=== PATIENT | female | born 1995 | race African-American/Black ===

== ENCOUNTER 2017-03-04 16:50 | Emergency (ER) | payer SELFPAY ==
[2017-03-04] MEDS ORDERED: ONDANSETRON 4 MG TAB.RAPDIS PO ONE (17:17)
--- NOTE | 2017-03-04 17:19 | ER Document Report ---
ED Medical Screen (RME) - General Chief Complaint: Vomiting Stated Complaint: VOMITING,HEADACHE Time Seen by Provider: 03/04/17 17:11 Mode of Arrival: Ambulatory Information source: Patient Notes: This is a 21-year-old female that presents to the emergency room with nausea, vomiting since yesterday. The patient states that she vomited multiple times yesterday and is only vomited twice today. She was able to tolerate food and had recently gone to [employer] shortly prior to arrival. She does state she is nauseated right now. She denies abdominal pain at this time. She denies fever. TRAVEL OUTSIDE OF THE [place] IN LAST 30 DAYS: No - HPI Onset: Yesterday Onset/Duration: Gradual Quality of pain: Cramping, Dull Severity: Mild Pain Level: 1 Associated Symptoms: Diarrhea, Nausea, Vomiting. denies: Abdominal pain, Dysuria Exacerbated by: Denies Relieved by: Denies Similar symptoms previously: No Recently seen / treated by doctor: No - Related Data Smoking: Non-smoker Frequency of alcohol use: None Drug Abuse: None Allergies/Adverse Reactions: No Known Allergies Allergy (Unverified 03/04/17 16:52) Past Medical History - General Information source: Patient - Social History Cigarette use (# per day): No Chew tobacco use (# tins/day): No Frequency of alcohol use: Rare Drug Abuse: None Lives with: Family Family history: Reviewed & Not Pertinent - Medical History Medical History: Negative Renal/ Medical History: Denies: Hx Peritoneal Dialysis Surgical Hx: Negative - Immunizations Immunizations up to date: Yes Hx Diphtheria, Pertussis, Tetanus Vaccination: Yes History of Influenza Vaccine for 03/2017 - 08/2017 Season: No Review of Systems - Review of Systems Constitutional: denies: Chills, Fever EENT: No symptoms reported Cardiovascular: No symptoms reported Respiratory: No symptoms reported Gastrointestinal: See HPI Genitourinary: No symptoms reported Female Genitourinary: No symptoms reported Musculoskeletal: No symptoms reported Skin: No symptoms reported Hematologic/Lymphatic: No symptoms reported Neurological/Psychological: See HPI Physical Exam - Vital signs Vitals: Temp Pulse Resp BP Pulse Ox 98.5 F 78 16 128/76 H 100 03/04/17 16:55 03/04/17 16:55 03/04/17 16:55 03/04/17 16:55 03/04/17 16:55 Notes: Physical exam: GENERAL: 21-year-old female, alert and oriented 3, no acute distress HEAD: Atraumatic, normocephalic. EYES: Pupils equal round and reactive to light, extraocular movements intact, sclera anicteric, conjunctiva are normal. ENT: TMs normal, nares patent, oropharynx clear without exudates. Moist mucous membranes. NECK: Normal range of motion, supple without obvious mass or JVD. LUNGS: Breath sounds clear to auscultation bilaterally and equal. No wheezes rales or rhonchi. HEART: Regular rate and rhythm without murmurs, rubs or gallops. ABDOMEN: Soft, normoactive bowel sounds. No tenderness to palpation. No guarding, no rebound. No masses appreciated. EXTREMITIES: Normal range of motion, no pitting or edema. No clubbing or cyanosis. NEUROLOGICAL: Cranial nerves II through XII grossly intact. Normal speech, moving all extremities. PSYCH: Normal mood, normal affect. SKIN: Warm, Dry, normal turgor, no rashes or lesions noted. Course - Vital Signs Vital signs: Temp Pulse Resp BP Pulse Ox 97.8 F 61 16 123/74 100 03/04/17 17:31 03/04/17 17:31 03/04/17 17:31 03/04/17 17:31 03/04/17 17:31 - Laboratory Result Diagrams: 03/04/17 18:56 03/04/17 18:56 Laboratory results interpreted by me: 03/04/17 03/04/17 03/04/17 18:56 18:56 18:56 RBC 5.71 H MCV 72 L MCH 23.4 L RDW 15.2 H Calcium 10.4 H Total Protein 8.5 H Urine Urobilinogen 2.0 H Ur Leukocyte Esterase MODERATE H Urine Ascorbic Acid 40 H Doctor's Discharge - Discharge Clinical Impression: Vomiting Qualifiers: Nausea presence: with nausea Headache Qualifiers: Headache type: tension-type Condition: Stable Disposition: HOME, SELF-CARE Instructions: Antinausea Medication ([facility]) Additional Instructions: Thank you for choosing [facility] for your care. The examination and treatment you have received in the Emergency Department today has been rendered on an emergency basis only and is not intended to be a substitute for complete medical care. You should contact your follow-up physician as it is important that he or she examine you for any new or remaining problems. If given a copy of any lab tests or radiology reports, please bring them with you when you see your physician. If your problem worsens or new symptoms appear and you are unable to arrange prompt follow-up care, return to the Emergency Department. Specific signs to look out for: Worsening nausea and vomiting, worsening headache, fever, neck pain, light bothering the eyes. Any other instructions: Rest, drink plenty of fluids, take the Zofran for nausea, advance diet as needed.
[2017-03-04 17:33] VITALS: BP 123/74
[2017-03-04 19:09] LABS: ABSOLUTE BASOPHILS # (AUTO) 0.1 10^3/uL (0.0-0.2); ABSOLUTE EOSINOPHILS # (AUTO) 0.1 10^3/uL (0.0-0.6); ABSOLUTE LYMPHOCYTES (AUTO) 2.9 10^3/uL (0.5-4.7); ABSOLUTE MONOCYTES (AUTO) 0.7 10^3/uL (0.1-1.4); BASOPHILS % (AUTO) 0.6 % (0-2); EOSINOPHILS % (AUTO) 0.8 % (0-6); HEMOGLOBIN 13.3 g/dL (12.0-15.5); HGB HCT DIFFERENCE -1.1; LYMPHOCYTES % (AUTO) 29.6 % (13-45); MEAN CORPUSCULAR HEMOGLOBIN 23.4 pg (27.0-33.4); MEAN CORPUSCULAR HGB CONC 32.5 g/dL (32.0-36.0); MEAN CORPUSCULAR VOLUME 72 fl (80-97); MONOCYTES % (AUTO) 7.4 % (3-13); RED BLOOD COUNT 5.71 10^6/uL (3.72-5.28); RED CELL DISTRIBUTION WIDTH 15.2 % (11.5-14.0); SEGMENTED NEUTROPHILS % (AUTO) 61.6 % (42-78); WHITE BLOOD COUNT 9.7 10^3/uL (4.0-10.5)
[2017-03-04 19:23] LABS: ALANINE AMINOTRANSFERASE 28 U/L (9-52); ALBUMIN 4.6 g/dL (3.5-5.0); ALKALINE PHOSPHATASE 82 U/L (38-126); ANION GAP 14 (5-19); ASPARTATE AMINO TRANSFERASE 21 U/L (14-36); BILIRUBIN,DIRECT 0.3 mg/dL (0.0-0.4); BILIRUBIN,TOTAL 0.5 mg/dL (0.2-1.3); BLOOD UREA NITROGEN 8 mg/dL (7-20); CALCIUM 10.4 mg/dL (8.4-10.2); CARBON DIOXIDE 26 mmol/L (22-30); CHLORIDE 102 mmol/L (98-107); CREATININE RESULT 0.86 mg/dL (0.52-1.25); GLUCOSE 77 mg/dL (75-110); POTASSIUM 4.1 mmol/L (3.6-5.0); SODIUM 141.9 mmol/L (137-145); TOTAL PROTEIN 8.5 g/dL (6.3-8.2)
[2017-03-04 19:29] LABS: APPEARANCE,URINE SLIGHTLY-CLOUDY; BILIRUBIN,URINE NEGATIVE (NEGATIVE); GLUCOSE, URINE NEGATIVE (NEGATIVE); KETONES,URINE NEGATIVE (NEGATIVE); LEUKOCYTE ESTERASE,URINE MODERATE (NEGATIVE); NITRITE,URINE NEGATIVE (NEGATIVE); PROTEIN,URINE NEGATIVE (NEGATIVE); URINE SPECIFIC GRAVITY 1.018
[2017-03-04] MEDS ORDERED: ONDANSETRON ODT 4 MG TAB (6 TAB/DSPK) PO PRN (19:55)
== END 2017-03-04 20:11 | disposition home or self-care (01) ==
LOC: ER 16:50
DX: R11.2 Nausea with vomiting, unspecified (principal); G44.209 Tension-type headache, unspecified, not intractable; R19.7 Diarrhea, unspecified
CPT/HCPCS: 99283; 36415; 84702; 85025; 80053; 81001; S0119

== ENCOUNTER 2017-04-15 17:12 | Emergency (ER) | payer SELFPAY ==
--- NOTE | 2017-04-15 20:02 | ER Document Report ---
ED GI/ - General Chief Complaint: Abdominal Cramping Stated Complaint: ABDOMINAL PAIN Time Seen by Provider: 04/15/17 19:42 Mode of Arrival: Ambulatory Information source: Patient Notes: 22-year-old female presents to ED for complaint of lower abdominal pain and pelvic pain. She denies any nausea or vomiting. She is unsure last menstrual period but she is on Nexplanon. She states her boyfriend just came [place] from [place] and he states he tested positive for chlamydia. She has had some pelvic pain does not remember any discharge. His boyfriend came back in January. TRAVEL OUTSIDE OF THE [place] IN LAST 30 DAYS: No - HPI Patient complains to provider of: Pelvic pain Onset: Other - Boyfriend positive for chlamydia she has had pelvic pain chronic Timing/Duration: Persistent Quality of pain: Cramping, Sharp Severity at maximum: Moderate Severity in ED: Moderate Pain Level: 3 Location: Pelvis Vaginal bleeding (Compared to normal period): None Associated symptoms: Vaginal discharge, Other - Pelvic pain all the time boyfriend came home in January and is positive with chlamydia Exacerbated by: Denies Relieved by: Denies Similar symptoms previously: Yes Recently seen / treated by doctor: No - Related Data Allergies/Adverse Reactions: No Known Allergies Allergy (Verified 04/15/17 17:21) Past Medical History - General Information source: Patient - Social History Smoking Status: Never Smoker Cigarette use (# per day): No Chew tobacco use (# tins/day): No Smoking Education Provided: No Frequency of alcohol use: None Drug Abuse: None Occupation: [employer] Lives with: Parents Family History: CVA, Hypertension, Other - Dementia. denies: Arthritis, CAD, COPD, DM, Hyperlipidemia, Malignancy, Thyroid Disfunction Patient has suicidal ideation: No Patient has homicidal ideation: No - Past Medical History Cardiac Medical History: Reports: None Pulmonary Medical History: Reports: None EENT Medical History: Reports: None Neurological Medical History: Reports: None Endocrine Medical History: Reports: None Renal/ Medical History: Reports: None Malignancy Medical History: Reports: None GI Medical History: Reports: None Musculoskeltal Medical History: Reports None Skin Medical History: Reports None Psychiatric Medical History: Reports: None Traumatic Medical History: Reports: None Infectious Medical History: Reports: None Surgical Hx: Negative Past Surgical History: Reports: None - Immunizations Immunizations up to date: Yes Hx Diphtheria, Pertussis, Tetanus Vaccination: Yes Review of Systems - Review of Systems Constitutional: No symptoms reported EENT: No symptoms reported Cardiovascular: No symptoms reported Respiratory: No symptoms reported Gastrointestinal: No symptoms reported Genitourinary: No symptoms reported Female Genitourinary: Vaginal discharge, Other - Pelvic pain Musculoskeletal: No symptoms reported Skin: No symptoms reported Hematologic/Lymphatic: No symptoms reported Neurological/Psychological: No symptoms reported -: Yes All other systems reviewed and negative Physical Exam - Vital signs Vitals: Temp Pulse Resp BP Pulse Ox 98.5 F 83 16 141/85 H 98 04/15/17 17:20 04/15/17 17:20 04/15/17 17:20 04/15/17 17:20 04/15/17 17:20 Interpretation: Normal - General General appearance: Appears well, Alert - HEENT Head: Normocephalic, Atraumatic Eyes: Normal Pupils: PERRL - Respiratory Respiratory status: No respiratory distress Chest status: Nontender Breath sounds: Normal Chest palpation: Normal - Cardiovascular Rhythm: Regular Heart sounds: Normal auscultation Murmur: No - Abdominal Inspection: Normal Distension: No distension Bowel sounds: Normal Tenderness: Nontender Organomegaly: No organomegaly - Back Back: Normal, Nontender - Extremities General upper extremity: Normal inspection, Nontender, Normal color, Normal ROM , Normal temperature General lower extremity: Normal inspection, Nontender, Normal color, Normal ROM , Normal temperature, Normal weight bearing. No: Jacquelin's sign - Neurological Neuro grossly intact: Yes Cognition: Normal Orientation: AAOx4 Cuco Coma Scale Eye Opening: Spontaneous Ira Coma Scale Verbal: Oriented Ira Coma Scale Motor: Obeys Commands Ira Coma Scale Total: 15 Speech: Normal Motor strength normal: LUE, RUE, LLE, RLE Sensory: Normal - Psychological Associated symptoms: Normal affect, Normal mood - Skin Skin Temperature: Warm Skin Moisture: Dry Skin Color: Normal Course - Re-evaluation Re-evalutation: 04/16/17 02:10 Patient called back in to the hospital later after going home and was given her lab results. He was positive chlamydia but she had already been treated with Rocephin and azithromycin before being discharged. - Vital Signs Vital signs: Temp Pulse Resp BP Pulse Ox 97.9 F 86 16 126/80 H 99 04/15/17 21:47 04/15/17 21:47 04/15/17 21:47 04/15/17 21:47 04/15/17 21:47 - Laboratory Laboratory results interpreted by me: 04/15/17 04/15/17 20:20 20:20 Ur Leukocyte Esterase TRACE H Urine Ascorbic Acid 40 H Chlamydia DNA (PCR) DETECTED H Discharge - Discharge Clinical Impression: Folliculitis, STD exposure Condition: Stable Disposition: HOME, SELF-CARE Instructions: Family Physicians / Practices Additional Instructions: Folliculitis You have a skin infection called folliculitis. This occurs when bacteria infect the hair follicles of the skin. Typically, redness and small pustules are found where hair shafts enter the skin. Allergy, surface irritation, shaving, and exposure to hot tubs predispose to folliculitis. The usual treatment is antibiotic ointment, sometimes combined with cortisone-type medication. Warm compresses are often used. If the infection has moved deeper into the skin, oral antibiotics may be necessary. To avoid future episodes of folliculitis, you must identify (if possible) the factors which allowed this infection to start. If you develop increasing pain, swelling, fever, or red streaks, call the doctor or return for re-evaluation. CEPHALOSPORINS: An antibiotic of the cephalosporin class has been prescribed. This type of antibiotic covers a wide variety of infections, including those of the skin, lungs, middle ear, and urinary tract. This antibiotic is somewhat similar to the penicillin family. In rare cases , a person who is allergic to penicillin will also be allergic to this medication. If you have had a severe allergic reaction to penicillin, and have not taken this antibiotic since that time, notify your doctor. Antibiotics which cover many germs ("broad spectrum" antibiotics) are more likely to cause diarrhea or "yeast" infections. Women prone to vaginal yeast problems may suffer an attack after taking this antibiotic. In infants, oral thrush (white spots "stuck" on the cheek) or yeast diaper rash may result. See your doctor if these problems occur. Call the doctor at once if you develop hives, itching, shortness of breath , or lightheadedness. Cephalexin The antibiotic you've been prescribed is a member of the cephalosporin class. This type of antibiotic covers a wide variety of infections, including those of the skin, lungs, and urinary tract. It's useful for staph infections. This antibiotic is slightly similar to the penicillin family. In rare cases , a person who is allergic to penicillin will also be allergic to this medication. If you have had a severe allergic reaction to penicillin, and have not taken this antibiotic since that time, notify your doctor. Antibiotics which cover many germs ("broad spectrum" antibiotics) are more likely to cause diarrhea or "yeast" infections. Women prone to vaginal yeast problems may suffer an attack after taking this antibiotic. In infants, oral thrush (white spots "stuck" on the cheek) or yeast diaper rash may result. See your doctor if these problems occur. Call at once if you develop itching, hives , shortness of breath, or lightheadedness. AZITHROMYCIN: Azithromycin (Zithromax) is a broad spectrum antibiotic in the same class as erythromycin. It can treat a variety of bacterial infections, but is most frequently used for respiratory infections. Azithromycin is extremely long-lasting. It accumulates in body tissues and continues to kill bacteria for many days. In order to improve absorption, Azithromycin should be taken at least one hour before or two hours after a meal. It does not have the same strong tendency to upset the stomach as erythromycin and is usually very well tolerated. Patients who have had a rash or other true allergic reactions to erythromycin should not take this medication. Call if you develop gastrointestinal distress, severe diarrhea, rash, hives, itching, or shortness of breath. FOLLOW-UP CARE: If you have been referred to a physician for follow-up care, call the physician s office for an appointment as you were instructed or within the next two days. If you experience worsening or a significant change in your symptoms, notify the physician immediately or return to the Emergency Department at any time for re-evaluation. Prescriptions: Cephalexin Monohydrate [Keflex 500 mg Capsule] 500 mg PO Q6H 5 Days capsule Forms: Elevated Blood Pressure, Return to Work
[2017-04-15 20:49] LABS: APPEARANCE,URINE CLEAR; BILIRUBIN,URINE NEGATIVE (NEGATIVE); GLUCOSE, URINE NEGATIVE (NEGATIVE); KETONES,URINE NEGATIVE (NEGATIVE); LEUKOCYTE ESTERASE,URINE TRACE (NEGATIVE); NITRITE,URINE NEGATIVE (NEGATIVE); PROTEIN,URINE NEGATIVE (NEGATIVE); UROBILINOGEN,URINE NEGATIVE mg/dL (<2.0)
[2017-04-15] MEDS ORDERED: AZITHROMYCIN 250 MG TABLET PO ONE (20:59)
[2017-04-15] MEDS ORDERED: CEFTRIAXONE INJ 250 MG VIAL IM ONE (20:59)
[2017-04-15] MEDS ORDERED: LIDOCAINE 1% INJ-PF (10 MG/ML) 30 ML SDV INJ ONE (20:59)
[2017-04-15 21:50] VITALS: BP 126/80
[2017-04-15 22:11] LABS: CHLAM PCR DETECTED (NOT DETECT)
== END 2017-04-15 21:51 | disposition home or self-care (01) ==
LOC: ER 17:12
DX: L73.9 Follicular disorder, unspecified (principal); Z20.2 Contact with and (suspected) exposure to infections with a predominantly sexual mode of transmission; R10.2 Pelvic and perineal pain; N89.8 Other specified noninflammatory disorders of vagina; Z97.5 Presence of (intrauterine) contraceptive device
CPT/HCPCS: 99284; 96372; 51701; 87210; 81025; 81001; 87491; 87591; J3490; J0696

== ENCOUNTER 2017-09-06 09:16 | Emergency (ER) | payer SELFPAY ==
[2017-09-06] MEDS ORDERED: PSEUDOEPHEDRINE HCL 30 MG TABLET PO ONE (10:13)
[2017-09-06] MEDS ORDERED: ONDANSETRON 4 MG TAB.RAPDIS PO ONE (10:13)
[2017-09-06] MEDS ORDERED: LORATADINE 10 MG TABLET PO ONE (10:13)
[2017-09-06] MEDS ORDERED: GUAIFENESIN 600 MG TABLET.SA PO ONE (10:13)
[2017-09-06] MEDS ORDERED: IBUPROFEN 800 MG TABLET PO ONE (10:13)
--- NOTE | 2017-09-06 10:19 | ER Document Report ---
ED ENT - General Chief Complaint: Cold Symptoms Stated Complaint: COLD SYMPTOMS Time Seen by Provider: 09/06/17 09:53 Mode of Arrival: Ambulatory Information source: Patient Notes: 22-year-old female presented ED for sore throat cough congestion headache for 2 days. She states she has a Nexplanon in her arm and that she sometimes has numbness to that arm. She states she did not take any medications at home. She states she felt like she had a fever but she did not have one in the emergency room. Patient mother was with the patient. Patient is alert oriented is speaking in full sentences walking with a steady gait. TRAVEL OUTSIDE OF THE [place] IN LAST 30 DAYS: No - HPI Patient complains to provider of: Nose problem, Throat problem Onset: Other - 2 days Onset/Duration: Gradual Quality of pain: Achy Severity: Mild Pain Level: 1 Context: Recent Illness Location of pain: Nose, Sinus, Throat Associated symptoms: Fever, Runny nose, Sinus pain, Sinus drainage, Sore throat Similar symptoms previously: Yes Recently seen / treated by doctor: No - Related Data Allergies/Adverse Reactions: No Known Allergies Allergy (Verified 09/06/17 09:21) Past Medical History - General Information source: Patient - Social History Smoking Status: Never Smoker Cigarette use (# per day): No Chew tobacco use (# tins/day): No Smoking Education Provided: No Frequency of alcohol use: None Drug Abuse: None Lives with: Family Family History: CVA, Hypertension, Other - Dementia. denies: Arthritis, CAD, COPD, DM, Hyperlipidemia, Malignancy, Thyroid Disfunction Patient has suicidal ideation: No Patient has homicidal ideation: No - Past Medical History Cardiac Medical History: Reports: None Pulmonary Medical History: Reports: None EENT Medical History: Reports: None Neurological Medical History: Reports: None Endocrine Medical History: Reports: None Renal/ Medical History: Reports: None Malignancy Medical History: Reports: None GI Medical History: Reports: None Musculoskeltal Medical History: Reports None Skin Medical History: Reports None Psychiatric Medical History: Reports: None Traumatic Medical History: Reports: None Infectious Medical History: Reports: None Surgical Hx: Negative Past Surgical History: Reports: None - Immunizations Immunizations up to date: Yes Hx Diphtheria, Pertussis, Tetanus Vaccination: Yes Review of Systems - Review of Systems Constitutional: Chills, Fever, Recent illness EENT: Nose discharge, Sinus pressure, Sinus discharge, Throat pain Cardiovascular: No symptoms reported Respiratory: No symptoms reported Gastrointestinal: No symptoms reported Genitourinary: No symptoms reported Female Genitourinary: No symptoms reported Musculoskeletal: No symptoms reported Skin: No symptoms reported Hematologic/Lymphatic: No symptoms reported Neurological/Psychological: No symptoms reported -: Yes All other systems reviewed and negative Physical Exam - Vital signs Vitals: Temp Pulse Resp BP Pulse Ox 98.0 F 103 H 16 143/76 H 98 09/06/17 09:24 09/06/17 09:24 09/06/17 09:24 09/06/17 09:24 09/06/17 09:24 Interpretation: Normal - General General appearance: Appears well, Alert - HEENT Head: Normocephalic, Atraumatic Eyes: Normal Pupils: PERRL Ears: Normal External canal: Normal Tympanic membrane: Normal Sinus: Normal Nasal: Purulent discharge, Swelling Mouth/Lips: Normal Mucous membranes: Normal Pharynx: Post nasal drainage. No: Erythema, Exudate, Tonsillar hypertrophy Neck: Normal - Respiratory Respiratory status: No respiratory distress Chest status: Nontender Breath sounds: Normal Chest palpation: Normal - Cardiovascular Rhythm: Regular Heart sounds: Normal auscultation Murmur: No - Abdominal Inspection: Normal Distension: No distension Bowel sounds: Normal Tenderness: Nontender Organomegaly: No organomegaly - Back Back: Normal, Nontender - Extremities General upper extremity: Normal inspection, Nontender, Normal color, Normal ROM , Normal temperature General lower extremity: Normal inspection, Nontender, Normal color, Normal ROM , Normal temperature, Normal weight bearing. No: Jacquelin's sign - Neurological Neuro grossly intact: Yes Cognition: Normal Orientation: AAOx4 [place] Coma Scale Eye Opening: Spontaneous [place] Coma Scale Verbal: Oriented [place] Coma Scale Motor: Obeys Commands [place] Coma Scale Total: 15 Speech: Normal Motor strength normal: LUE, RUE, LLE, RLE Sensory: Normal - Psychological Associated symptoms: Normal affect, Normal mood - Skin Skin Temperature: Warm Skin Moisture: Dry Skin Color: Normal Course - Re-evaluation Re-evalutation: 09/06/17 22:26 After performing a Medical Screening Examination, I estimate there is LOW risk for ACUTE CORONARY SYNDROME, RESPIRATORY FAILURE, SEPSIS OR MENINGITIS, thus I consider the discharge disposition reasonable. I have reevaluated this patient multiple times and no significant life threatening changes are noted. The patient and I have discussed the diagnosis and risks, and we agree with discharging home with close follow-up. We also discussed returning to the Emergency Department immediately if new or worsening symptoms occur. We have discussed the symptoms which are most concerning (e.g., changing or worsening pain, trouble swallowing or breathing, neck stiffness, fever) that necessitate immediate return. - Vital Signs Vital signs: Temp Pulse Resp BP Pulse Ox 97.9 F 99 18 140/78 H 99 09/06/17 10:57 09/06/17 10:57 09/06/17 10:57 09/06/17 10:57 09/06/17 10:57 Discharge - Discharge Clinical Impression: URI (upper respiratory infection) Qualifiers: URI type: unspecified URI Qualified Code(s): J06.9 - Acute upper respiratory infection, unspecified Headache Qualifiers: Headache type: unspecified Headache chronicity pattern: unspecified pattern Intractability: not intractable Qualified Code(s): R51 - Headache Condition: Stable Disposition: HOME, SELF-CARE Instructions: Family Physicians / Practices Additional Instructions: HEADACHE: The physician does not feel that the headache you are experiencing has a serious underlying cause. Most headaches are due to emotional stress, with resultant muscle tension (tension headache). Occasionally, headaches are secondary to changes in the blood vessels of the scalp (vascular headache and migraine headache). Sometimes, a headache is the first symptom of another developing illness, such as a viral infection. You have no evidence of stroke, bleeding, meningitis, or other serious cause of your headache. The treatment of headaches varies with the severity and cause of the pain. Not all headaches need pain shots. In fact, there is evidence that using narcotics for headaches may make them worse in the long run. The physician will determine the therapy that's in your best interest. If you develop a fever, if the headache is different from any you've previously experienced, or if the headache progressively worsens, then call your physician at once or go to the emergency room. UPPER RESPIRATORY ILLNESS: You have a viral infection of the respiratory passages -- a "cold." This common infection causes nasal congestion, drainage, and often sore throat and cough. It is highly contagious. The disease usually lasts about 10 to 14 days. There is no "cure" for the viral infection -- it must run its course. If there is a complication, such as bacterial infection in the nose, sinuses, middle ear, or bronchial tubes, antibiotics may be required. The antibiotics won't affect the virus. Drink plenty of fluids. A humidifier may help. An expectorant medication or decongestant may make you more comfortable. Use acetaminophen or ibuprofen for fever or aches. See the doctor if fever persists over two days, if there is any significant worsening of your symptoms, or if you simply fail to improve as expected. DECONGESTANT MEDICATION: A decongestant medicine has been suggested. Often this medicine is combined in the same tablet with an antihistamine or expectorant. This type of medicine is helpful in treating a bad cold or sinus condition, as well as in treatment of the nasal congestion of hay fever. It is not of much benefit for lung infections. Decongestant medicines are related to stimulants. They can cause an increase in blood pressure and heart rate. Persons with heart disease and high blood pressure should not take decongestants without discussing this with the physician. If you develop palpitations, chest pain, headache, or tremors, stop the medicine and consult your physician. COUGH-SUPPRESSANT & EXPECTORANT MEDICATION: You are to use a cough medication as needed for relief of symptoms. This medicine is a combination of an expectorant (to make the mucous thinner and more easily "coughed up") and a cough suppressant (to reduce the frequency of coughing). The cough-suppressant medicine is related to narcotics. You may experience mild nausea and sleepiness. Some patients who are very sensitive to narcotics may have stomach pain from this medicine. Taking the medicine with food reduces these side effects. Do not drive or work with machinery until you know how this medicine affects you. The expectorant should have no side effects. Iodine-containing expectorants (such as organidin) should not be taken by persons with active thyroid disease unless approved by your doctor. Call the doctor if you develop shortness of breath, hives, rash, itching, lightheadedness, or severe nausea and vomiting USE OF ACETAMINOPHEN (Tylenol): Acetaminophen may be taken for pain relief or fever control. It's much safer than aspirin, offering a wider range of "safe" dosages. It is safe during . Some brand names are Tylenol, Panadol, Datril, Anacin 3, Tempra, and Liquiprin. Acetaminophen can be repeated every four hours. The following are maximum recommended dosages: >89 pounds or adults 650 mg to 900 mg Acetaminophen can be repeated every four hours. Maximum dose not to exceed 4000 mg a day. USE OF DIPHENHYDRAMINE: Diphenhydramine (Benadryl) is an antihistamine and has been recommended to help treat your headache and to prevent side effects of other medications used to treat headaches. The medication can be repeated four times daily. Age Elixir (12.5 mg/tsp) 25 mg pill adult 1-2 tabs Antihistamines may cause drowsiness, especially with the first dose. Do not operate machinery or drive while under the effects of the medication. Do not combine the medication with alcohol, or with any other medication without talking to your doctor. ANTINAUSEA MEDICATION: You have been given a medication to suppress nausea and vomiting. This type of medication can be given as a shot, pill, or suppository. It will usually last for many hours. Pills and shots usually last six to eight hours, suppositories last about 12 hours. For the typical illness, only one or two doses of the medication may be necessary. Mild lightheadedness may occur. This type of medicine can cause drowsiness. Do not drive or operate dangerous machinery while under its influence. Do not mix with alcohol. See your doctor at once if you have muscle spasms or tightness, or uncontrollable motions (particularly of the neck, mouth, or jaw). Persistent vomiting or severe lightheadedness should also be evaluated by the physician. You have been treated with Claritin 10 mg, Sudafed 30 mg, Mucinex 600 mg, and ibuprofen 800 mg. For your cough cold congestion I have added Zofran to this mixture due to your headache it will help the ibuprofen with your headache. He can also take Flonase which is [id number] 1 spray each nostril followed the directions on the box. Another treatment that will help you is gargling with warm salt or salt water to clear the mucus from the back your throat. This will help your sore throat and your upper respiratory infection. The following is the recipe for that Salt and soda solution 1 quart of water 1 tablespoon of salt 1 teaspoon of baking soda Mixed 3 ingredients together and boil for 1 minute Placed in a covered quart jar Use 1/2 ounce of cold solution to gargle 3 times a day It also gets some nasal saline gel and put it into the outside of your nasal passageway to reduce the amount of pollen and other irritants to get into your notes. FOLLOW-UP CARE: If you have been referred to a physician for follow-up care, call the physician s office for an appointment as you were instructed or within the next two days. If you experience worsening or a significant change in your symptoms, notify the physician immediately or return to the Emergency Department at any time for re-evaluation. Forms: Elevated Blood Pressure, Return to Work
[2017-09-06 11:05] VITALS: BP 140/78
== END 2017-09-06 10:57 | disposition home or self-care (01) ==
LOC: ER 09:16
DX: J06.9 Acute upper respiratory infection, unspecified (principal); R51 Headache; R20.0 Anesthesia of skin
CPT/HCPCS: 99283; S0119

== ENCOUNTER 2017-10-08 13:10 | Emergency (ER) | payer OTHER ==
--- NOTE | 2017-10-08 14:34 | ER Document Report ---
ED ENT - General Chief Complaint: Sore Throat Stated Complaint: HEADACHE, THROAT PAIN, DIFFICULTY BREATHING Time Seen by Provider: 10/08/17 13:41 Mode of Arrival: Ambulatory Information source: Patient TRAVEL OUTSIDE OF THE [place] IN LAST 30 DAYS: No - HPI Patient complains to provider of: Throat problem Notes: Patient here with complaints of sore throat, nasal congestion and cough started yesterday. No fever. No difficulty breathing or swallowing. No nausea, vomiting, diarrhea. No blurred or loss vision. No neck stiffness. No rash. She also complains some intermittent numbness tingling to her left arm. She states that she thinks it is due to her implanted control and she has an appointment with her doctor regarding that coming up. She denies any numbness tingling or pain at this time. She denies any other complaints at this time. - Related Data Allergies/Adverse Reactions: No Known Allergies Allergy (Verified 10/08/17 13:13) Past Medical History - Social History Smoking Status: Unknown if Ever Smoked Family History: CVA, Hypertension, Other - Dementia. denies: Arthritis, CAD, COPD, DM, Hyperlipidemia, Malignancy, Thyroid Disfunction Patient has suicidal ideation: No Patient has homicidal ideation: No Renal/ Medical History: Denies: Hx Peritoneal Dialysis - Immunizations Immunizations up to date: Yes Hx Diphtheria, Pertussis, Tetanus Vaccination: Yes Review of Systems - Review of Systems -: Yes All other systems reviewed and negative Physical Exam - Vital signs Vitals: Temp Pulse Resp BP Pulse Ox 98.0 F 73 20 129/73 H 100 10/08/17 13:14 10/08/17 13:14 10/08/17 13:14 10/08/17 13:14 10/08/17 13:14 - Notes Notes: GENERAL: alert, cooperative, nontoxic, no distress. HEAD: normocephalic, atraumatic EYES: conjunctiva pink without discharge, no external redness or swelling. EARS: no external swelling, no external redness, no mastoid redness, swelling, tenderness. Ear canals are clear without swelling or drainage. TMs pearly gamboa , no redness, no bulging, normal landmarks, no perforation. NOSE: atraumatic, no external swelling. clear rhinorrhea noted. MOUTH/THROAT: mucous membranes moist and pink, posterior pharynx without erythema, swelling, exudate. No trismus or drooling. NECK: soft, supple, full range of motion, no meningismus. CHEST: no distress, lungs clear and equal throughout. No wheezing, rales, rhonchi. CARDIAC: regular rate and rhythm, no murmur, normal capillary refill, normal pulses. No peripheral edema noted. BACK: full range of motion, no CVA tenderness. EXTREMITIES: full range of motion of all extremities. No redness, no swelling. NEURO: alert and oriented A&O3, no focal deficits, full range of motion of all extremities. PYSCH: appropriate mood, affect. Patient is cooperative. SKIN: pink, warm, dry, no rash. Course - Re-evaluation Re-evalutation: 10/08/17 14:31 Patient is nontoxic appearing with stable vitals. She is here with complaints of nasal congestion, cough, sore throat that started yesterday. No fever. She is a benign exam. No sign of peritonsillar abscess, retropharyngeal abscess, epiglottitis. Rapid strep is negative. Lungs are clear. She is not hypoxic. Patient likely has a upper respiratory infection. At this point the patient will be discharged home with Claritin-D, Flonase. Follow-up if not better in 1 week, sooner for worsening symptoms, high fever, difficulty breathing or swelling, or for any further concerns. The patient's emergency department workup and current diagnosis were explained to the patient and or family. Follow-up instructions were provided. Medications if prescribed were discussed. Instructions for when to return to the emergency department including specific worrisome symptoms were discussed with the patient and/or family. The patient is noted to have elevated blood pressure during today's emergency department visit. The patient was informed of this finding. The patient was instructed that this may be related to pre-hypertension and requires further evaluation with a primary care provider. The patient has no hypertensive symptoms at this time. - Vital Signs Vital signs: Temp Pulse Resp BP Pulse Ox 98.0 F 73 20 129/73 H 100 10/08/17 13:14 10/08/17 13:14 10/08/17 13:14 10/08/17 13:14 10/08/17 13:14 Discharge - Discharge Clinical Impression: Sore throat URI (upper respiratory infection) Qualifiers: URI type: unspecified viral URI Qualified Code(s): J06.9 - Acute upper respiratory infection, unspecified Condition: Stable Disposition: HOME, SELF-CARE Instructions: Sore Throat ([facility]), Upper Respiratory Illness ([facility]) Additional Instructions: Patient is prescribed. Take Tylenol Motrin as needed for pain. Follow-up if not better in 1 week, sooner for worsening symptoms, high fever, difficulty breathing or swallowing, or for any further concerns. Your blood pressure was elevated during today's visit. Have this rechecked with your doctor. Prescriptions: Fluticasone Propionate [Flonase Nasal [place] 50 Mcg/[place] 16 gm] 1 spray NASL Q12 #1 inhaler Loratadine/Pseudoephedrine Sul [Claritin-D 12 Hour Tablet] 1 each PO BID PRN # [id number] PRN Reason: Forms: Elevated Blood Pressure, Smoking Cessation Education, Return to Work Referrals: [facility] [Provider Group] - Follow up as needed
[2017-10-08 14:40] VITALS: BP 128/70
== END 2017-10-08 14:38 | disposition home or self-care (01) ==
LOC: ER 13:10
DX: J06.9 Acute upper respiratory infection, unspecified (principal); J02.9 Acute pharyngitis, unspecified; R51 Headache; R09.81 Nasal congestion; R05 Cough; R20.0 Anesthesia of skin
CPT/HCPCS: 87070; 87880; 99283

== ENCOUNTER 2017-11-18 13:46 | Emergency (ER) | payer OTHER ==
--- NOTE | 2017-11-18 15:34 | ER Document Report ---
ED General - General Chief Complaint: Chest Pain Stated Complaint: CHEST PAIN Time Seen by Provider: 11/18/17 15:22 Notes: 22-year-old female presents emergency department complaining of sharp stabbing sternal chest pain starting this morning that worsens when she moves or takes a deep breath. States it was associated with shortness of breath earlier but that has since resolved. Has not tried anything to treat this. Does admit to having a recent upper respiratory infection that has since resolved. Denies any diaphoresis or radiation of the pain, denies any heart disease, cocaine use or family history of very early cardiac disease. TRAVEL OUTSIDE OF THE [place] IN LAST 30 DAYS: No - Related Data Allergies/Adverse Reactions: No Known Allergies Allergy (Verified 11/18/17 13:48) Past Medical History - General Information source: Patient - Social History Smoking Status: Never Smoker Chew tobacco use (# tins/day): No Frequency of alcohol use: None Drug Abuse: None Family History: CVA, Hypertension, Other - Dementia. denies: Arthritis, CAD, COPD, DM, Hyperlipidemia, Malignancy, Thyroid Disfunction Patient has suicidal ideation: No Patient has homicidal ideation: No Renal/ Medical History: Denies: Hx Peritoneal Dialysis - Immunizations Immunizations up to date: Yes Hx Diphtheria, Pertussis, Tetanus Vaccination: Yes Review of Systems - Review of Systems Constitutional: No symptoms reported Cardiovascular: See HPI Respiratory: See HPI -: Yes All other systems reviewed and negative Physical Exam - Vital signs Vitals: Temp Pulse Resp BP Pulse Ox 97.7 F 76 14 123/69 99 11/18/17 13:49 11/18/17 13:49 11/18/17 13:49 11/18/17 13:49 11/18/17 13:49 - Notes Notes: GENERAL: Alert, interacts well. No acute distress. HEAD: Normocephalic, atraumatic EYES: Pupils equal, round and reactive to light, extraocular movements intact. ENT: Oral mucosa moist, tongue midline. NECK: Full range of motion, supple, trachea midline. LUNGS: Clear to auscultation bilaterally, no wheezes, rales or rhonchi, no respiratory distress. HEART: Regular rate and rhythm, no murmurs, gallops, rubs. Sternal palpation is very tender, no rashes noted, pain worsens with any movement of her costochondral joint as well. ABDOMEN: Soft, nontender, nondistended, bowel sounds present in all 4 quadrants. EXTREMITIES: Moves all 4 extremities spontaneously, no edema. No cyanosis. NEUROLOGICAL: Alert and oriented x3, normal speech. PSYCH: Normal mood, normal affect. SKIN: Warm, Dry, normal turgor, no rashes or lesions noted. Course - Re-evaluation Re-evalutation: 11/18/17 15:29 EKG nonischemic, completely reproducible pain on exam, consistent with costochondritis, had a recent upper respiratory infection that likely triggered this inflammation. Patient will be discharged home with ibuprofen 800 mg every 8 hours and steroids. - Vital Signs Vital signs: Temp Pulse Resp BP Pulse Ox 97.7 F 76 14 123/69 99 11/18/17 13:49 11/18/17 13:49 11/18/17 13:49 11/18/17 13:49 11/18/17 13:49 Discharge - Discharge Clinical Impression: Costochondritis, acute Condition: Stable Disposition: HOME, SELF-CARE Additional Instructions: Costochondritis Your chest pain is coming from the rib cartilages in the chest wall. This is often caused by subtle straining of the ribs near the breastbone. The strain can occur from a mild injury, coughing or sneezing with a "cold," vigorous vomiting, or even from rib compression while sleeping. Often the pain doesn't begin until a couple of days after the strain. Persons with arthritis are especially prone to this type of pain, due to inflammation of the cartilage joints near the breast bone. But often, there is no clear reason why it happens. Rest from strenuous physical activity. This kind of chest pain is usually made worse by movement of the chest. Depending on the symptoms, we may prescribe medicine for pain and inflammation. Apply gentle warmth to the painful area for 15 minutes every hour or two. You should call contact the doctor immediately if things change. Further evaluation is needed if you develop a fever or cough, if the nature of the pain changes, or if you become short of breath. Prescriptions: Prednisone [Deltasone 20 mg Tablet] 2 tab PO DAILY 5 Days tablet Forms: Return to Work Referrals: ELIUD RODRIGUEZ MD [ACTIVE STAFF] - Follow up as needed
--- NOTE | 2017-11-18 15:39 | EKG REPORT ---
SEVERITY:- NORMAL ECG - SINUS RHYTHM : Confirmed by: Yana Quiroga MD 18-Nov-2017 15:37:55
[2017-11-18 15:43] VITALS: BP 124/68
== END 2017-11-18 15:34 | disposition home or self-care (01) ==
LOC: ER 13:46
DX: M94.0 Chondrocostal junction syndrome [Tietze] (principal); R07.9 Chest pain, unspecified
CPT/HCPCS: 93005; 93010; 99283

== ENCOUNTER 2018-02-04 09:20 | Emergency (ER) | payer SELFPAY ==
[2018-02-04] MEDS ORDERED: ACETAMINOPHEN 325 MG TABLET PO ONE (10:06)
[2018-02-04] MEDS ORDERED: ONDANSETRON 4 MG TAB.RAPDIS PO ONE (10:07)
--- NOTE | 2018-02-04 10:09 | ER Document Report ---
ED General - General Chief Complaint: Fever Stated Complaint: VOMITING/HEADACHE Time Seen by Provider: 02/04/18 10:01 Notes: Patient is a 22-year-old female that presents to the emergency department for chief complaint of congestion, nausea, vomiting and diarrhea. Patient states that she has been having these symptoms since Saturday, she states that the headache came on and she felt subjectively febrile, did not take her temperature , and then had nausea and vomiting, which continued through today, she had some diarrhea associated as well. She believes she has had some sick contacts as well, denies that this is the worst headache of her life, describes it as an throbbing sensation. She has not taken Tylenol or Motrin for her headache. She does not believe she is . She denies having any chest pain, shortness of breath, difficulty breathing, abdominal pain. Past Medical History: Denies chronic medical conditions Past Surgical History: Denies major surgical history Social History: Admits to occasional alcohol use, denies tobacco or illicit drug use. Family History: Reviewed and noncontributory for presenting illness Allergies: Reviewed, see documented allergy list. REVIEW OF SYSTEMS: Unless otherwise stated in this report the patient's positive and negative responses for review of systems for constitutional, eyes, ENT, cardiovascular, respiratory, gastrointestinal, neurological, genitourinary, musculoskeletal, and integumentary systems and related systems to the presenting problem are either as stated in the HPI or were not pertinent or were negative for the symptoms and/or complaints related to the presenting medical problem. PHYSICAL EXAMINATION: Vital signs reviewed, nursing noted reviewed. GENERAL: Well-appearing, well-nourished and in no acute distress. HEAD: Atraumatic, normocephalic. EYES: Eyes appear normal, extraocular movements intact, sclera anicteric, conjunctiva are normal. ENT: nares patent, posterior oropharynx demonstrates a few exudates, and enlarged tonsils. Moist mucous membranes. NECK: Normal range of motion, supple without lymphadenopathy LUNGS: Breath sounds clear to auscultation bilaterally and equal. No wheezes rales or rhonchi. HEART: Regular rate and rhythm without murmurs ABDOMEN: Soft, nontender, normoactive bowel sounds. No rebound, guarding, or rigidity. No masses appreciated. EXTREMITIES: Nontender, good range of motion, no pitting or edema. NEUROLOGICAL: No focal neurological deficits. Moves all extremities spontaneously Motor and sensory grossly intact on exam. PSYCH: Normal mood, normal affect. SKIN: Warm, Dry, normal turgor, no rashes or lesions noted on exposed skin TRAVEL OUTSIDE OF THE [place] IN LAST 30 DAYS: No - Related Data Allergies/Adverse Reactions: No Known Allergies Allergy (Verified 02/04/18 10:00) Past Medical History - Social History Smoking Status: Never Smoker Chew tobacco use (# tins/day): No Frequency of alcohol use: None Drug Abuse: None Family History: CVA, Hypertension, Other - Dementia. denies: Arthritis, CAD, COPD, DM, Hyperlipidemia, Malignancy, Thyroid Disfunction Patient has suicidal ideation: No Patient has homicidal ideation: No Renal/ Medical History: Denies: Hx Peritoneal Dialysis - Immunizations Immunizations up to date: Yes Hx Diphtheria, Pertussis, Tetanus Vaccination: Yes Review of Systems - Review of Systems Notes: Dictated Physical Exam - Vital signs Vitals: Temp Pulse Resp BP Pulse Ox 98.7 F 110 H 18 135/76 H 99 02/04/18 09:36 02/04/18 09:36 02/04/18 09:36 02/04/18 09:36 02/04/18 09:36 - Notes Notes: Dictated Course - Re-evaluation Re-evalutation: Patient seen and examined vital signs reviewed. Laboratory data and imaging were ordered as appropriate for the patient's presenting symptoms and complaint, with consideration of any critical or life threatening conditions that may be associated with their obtained history and exam as noted above. Patient was treated with Zofran, and Tylenol Results were reviewed when available and demonstrated negative hCG, positive urinalysis consistent with urinary tract infection, strep swab negative The patient was re-evaluated and was patient was improved, at this point will discharge home with a prescription for Zofran and to follow up with her primary care physician, she is advised oral rehydration. Evaluation was most consistent with gastroenteritis, and nonspecific headache. Patient's headaches have been persistent for 3 days, and associated with her other symptoms including nausea, vomiting, sore throat and diarrhea, most consistent with a viral syndrome, given no focal neurological deficits, GCS of 15, and lack of severity of headache, and low clinical concern, for life- threatening causes of headache including but not limited to subarachnoid hemorrhage, brain lesion, or other acute intracranial abnormality. Results were discussed with the patient at this point, after careful consideration I feel that that patient can be discharged from the emergency department, the patient was educated treatments and reasons to return to the emergency department based on their presumed diagnosis as noted above, they were advised to followup with a primary care physician in 2-3 days. Patient was agreeable to plan of care. *Note is created using voice recognition software and may contain spelling, syntax or grammatical errors. 02/04/18 18:47 - Vital Signs Vital signs: Temp Pulse Resp BP Pulse Ox 98.5 F 90 20 128/68 H 100 02/04/18 13:31 02/04/18 13:31 02/04/18 13:31 02/04/18 13:31 02/04/18 13:31 - Laboratory Laboratory results interpreted by me: 02/04/18 12:19 Urine Urobilinogen 2.0 H Ur Leukocyte Esterase LARGE H Discharge - Discharge Clinical Impression: Gastroenteritis UTI (urinary tract infection) Qualifiers: Urinary tract infection type: site unspecified Hematuria presence: without hematuria Qualified Code(s): N39.0 - Urinary tract infection, site not specified Condition: Good Disposition: HOME, SELF-CARE Instructions: Urinary Tract Infection ([facility]) Additional Instructions: Please return to the emergency department if you have any worsening, or concern of your symptoms. Please return to the emergency department if you develop chest pain, difficulty breathing, severe abdominal pain, or ongoing vomiting. Please follow-up with your primary care physician in 2-3 days and any other recommended physicians. If prescribed, take all medications as directed. If you have any questions or concerns do not hesitate to return the emergency department for evaluation. Prescriptions: Ondansetron [Zofran Odt 4 mg Tablet] 1 tab PO Q6H PRN #10 tab.rapdis PRN Reason: nausea Sulfamethoxazole/Trimethoprim [Bactrim Ds Tablet] 1 each PO BID #6 tablet Forms: Return to Work Referrals: [facility] [Provider Group] - Follow up as needed
[2018-02-04 12:47] LABS: APPEARANCE,URINE CLOUDY; BILIRUBIN,URINE NEGATIVE (NEGATIVE); COLOR,URINE YELLOW; GLUCOSE, URINE NEGATIVE (NEGATIVE); KETONES,URINE NEGATIVE (NEGATIVE); LEUKOCYTE ESTERASE,URINE LARGE (NEGATIVE); NITRITE,URINE NEGATIVE (NEGATIVE); PROTEIN,URINE NEGATIVE (NEGATIVE); URINE SPECIFIC GRAVITY 1.026
[2018-02-04 13:33] VITALS: BP 128/68
== END 2018-02-04 13:34 | disposition home or self-care (01) ==
LOC: ER 09:20
DX: K52.9 Noninfective gastroenteritis and colitis, unspecified (principal); N39.0 Urinary tract infection, site not specified; R51 Headache
CPT/HCPCS: 99283; 87070; 87880; 81025; 81001; S0119

== ENCOUNTER 2018-05-05 04:35 | Emergency (ER) | payer SELFPAY ==
[2018-05-05] MEDS ORDERED: DEXAMETHASONE SOD PHOS INJ 10 MG/1 ML VIAL IM ONE (05:15)
[2018-05-05] MEDS ORDERED: KETOROLAC TROMETHAMINE INJ/PF 30 MG/1 ML SDV IV ONE (05:18)
[2018-05-05] MEDS ORDERED: METHYLPREDNISOLONE INJ 125 MG/2 ML SDV IV ONE (05:18)
[2018-05-05] MEDS ORDERED: NORMAL SALINE 1000 ML 1,000 ML IV ONE ×2 (05:19→07:08)
[2018-05-05] MEDS ORDERED: CEFTRIAXONE INJ 1000 MG VIAL IV ONE (05:24)
--- NOTE | 2018-05-05 05:37 | ER Document Report ---
ED ENT - General Mode of Arrival: Ambulatory Information source: Patient TRAVEL OUTSIDE OF THE [place] IN LAST 30 DAYS: No <LAYA OG - Last Filed: 05/05/18 07:30> <DINESH GARCIA - Last Filed: 05/05/18 08:34> - General Chief Complaint: Sore Throat Stated Complaint: SORE THROAT Time Seen by Provider: 05/05/18 05:08 Notes: Patient is a 23-year-old female who presents to the emergency department with chief complaint of sore throat. She reports she has had a sore throat for the last 3 days. She reports fever 2 days ago but none since. She states that she can swallow but it is causing her significant pain. Patient is sitting up in tripod position, she states when she lies down she has difficulty taking a breath. She reports multiple coworkers have been positive for strep throat. (LAYA OG) - Related Data Allergies/Adverse Reactions: No Known Allergies Allergy (Verified 02/04/18 10:00) Past Medical History - General Information source: Patient - Social History Smoking Status: Never Smoker Chew tobacco use (# tins/day): No Frequency of alcohol use: None Drug Abuse: None Family History: CVA, Hypertension, Other - Dementia. denies: Arthritis, CAD, COPD, DM, Hyperlipidemia, Malignancy, Thyroid Disfunction Patient has suicidal ideation: No Patient has homicidal ideation: No Renal/ Medical History: Denies: Hx Peritoneal Dialysis - Immunizations Immunizations up to date: Yes Hx Diphtheria, Pertussis, Tetanus Vaccination: Yes <LAYA OG - Last Filed: 05/05/18 07:30> Review of Systems - Review of Systems EENT: Throat pain, Difficulty swallowing <LAYA OG - Last Filed: 05/05/18 07:30> Physical Exam <LAYA OG - Last Filed: 05/05/18 07:30> <DINESH GARCIA - Last Filed: 05/05/18 08:34> - Vital signs Vitals: Temp Pulse Resp BP Pulse Ox 99.7 F 100 20 144/72 H 97 05/05/18 04:47 05/05/18 04:47 05/05/18 04:47 05/05/18 04:47 05/05/18 04:47 - Notes Notes: PHYSICAL EXAMINATION: GENERAL: Well-appearing, well-nourished and in moderate distress. HEAD: Atraumatic, normocephalic. EYES: Pupils equal round and reactive to light, extraocular movements intact, conjunctiva are normal. ENT: Nares patent, oropharynx erythematous, edematous and with exudates. Left tonsil larger than right, uvula deviated. NECK: Normal range of motion, lymphadenopathy noted. LUNGS: Breath sounds clear to auscultation bilaterally and equal. No wheezes rales or rhonchi. HEART: Regular rate and rhythm without murmurs ABDOMEN: Soft, nontender, nondistended abdomen. No guarding, no rebound. No masses appreciated. Female : deferred Musculoskeletal: Normal range of motion, no pitting or edema. No cyanosis. NEUROLOGICAL: Cranial nerves grossly intact. Normal speech, normal gait. Normal sensory, motor exams PSYCH: Normal mood, normal affect. SKIN: Warm, Dry, normal turgor, no rashes or lesions noted. (LAYA OG) Course - Laboratory Result Diagrams: 05/05/18 05:40 05/05/18 05:40 <LAYA OG - Last Filed: 05/05/18 07:30> - Laboratory Result Diagrams: 05/05/18 05:40 05/05/18 05:40 <DINESH GARCIA - Last Filed: 05/05/18 08:34> - Re-evaluation Re-evalutation: 05/05/18 07:35 Patient with mild leukocytosis, white blood count 12.3. Labs otherwise unremarkable. Patient does report some improvement after dose of IV Solu- Medrol and IV Toradol. Patient was also given dose of IV Rocephin 1 g. Rapid strep is negative however examination is consistent with strep. Will cover with Bicillin IM. CT soft tissue neck shows significant tonsillar swelling but no evidence of peritonsillar abscess. There is also uvula swelling and some narrowing of the airway and airway debris's. Dr. Chrissy Aguilar came to the bedside to evaluate the patient. Hospitalist was consulted for possible admission for airway management. They are unable to take the admission until we consult with ENT. 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 Patient handed off to Dinesh JIMENEZ. Patient stable at time of handoff. (LAYA OG) 05/05/18 08:09 I did call and speak with ENT, Dr. Lazaro, who recommends discharged home with antibiotics and steroids as she is doing better than arrival and just has significant tonsillitis without evidence of abscess. Vitals have remained acceptable. Patient states that she is feeling much better. P.o. challenge was given by myself and she is able to drink water without any difficulties. I did review with the patient maintaining more of a liquid diet for now to help decrease irritation to her throat. Patient is to call ENT today to schedule an appointment for follow-up this week. Patient is aware that with any worsening symptoms she is to return immediately. Recheck with ENT this week. Return to the ED with any worsening/concerning symptoms otherwise as reviewed. Patient is in agreement. Pt has already had PCN injection as well as rocephin which should cover her. Reviewed with Dr. Aguilar, we will give her 40mg pred daily x5 days. No further meds at this time otherwise. (DINESH GARCIA) - Vital Signs Vital signs: Temp Pulse Resp BP Pulse Ox 99.7 F 100 20 144/72 H 97 05/05/18 04:47 05/05/18 04:47 05/05/18 04:47 05/05/18 04:47 05/05/18 04:47 - Laboratory Laboratory results interpreted by me: 05/05/18 05:40 WBC 12.3 H RBC 5.41 H MCV 71 L MCH 22.5 L MCHC 31.9 L RDW 14.2 H Monocytes % 16.5 H Absolute Monocytes 2.0 H Discharge <LAYA OG - Last Filed: 05/05/18 07:30> <DINESH GARCIA - Last Filed: 05/05/18 08:34> - Discharge Clinical Impression: Acute tonsillitis Qualifiers: Pharyngitis/tonsillitis etiology: unspecified etiology Qualified Code(s): J03.90 - Acute tonsillitis, unspecified Condition: Stable Disposition: HOME, SELF-CARE Instructions: Tonsillitis ([facility]) Additional Instructions: Maintain adequate fluid intake Take meds as directed Salt water gargles, throat sprays, mouthwash rinse, peroxide gargles tylenol/ibuprofen as needed New toothbrush tomorrow evening over the counter cold medication as needed for symptoms F/u: with your PCM in 2-3 days for a recheck Call ENT today to schedule an appointment for further evaluation and management* * Return to the ED with any fever, worsening pain, chest pain, neck pain/stiffness , shortness of breath, cough, drooling, trouble swallowing/breathing, abdominal pain, n/v/d, rash, or worsening/concerning symptoms otherwise. Prescriptions: Prednisone [Deltasone 20 mg Tablet] 2 tab PO DAILY 5 Days #10 tablet Forms: Elevated Blood Pressure Referrals: TEVIN LAZARO MD [ACTIVE STAFF] - Follow up tomorrow
[2018-05-05 06:06] LABS: ABSOLUTE NEUT (AUTO) 8.1 10^3/uL (1.7-8.2); BASOPHILS % (AUTO) 0.3 % (0-2); EOSINOPHILS % (AUTO) 0.2 % (0-6); HEMATOCRIT 38.3 % (36.0-47.0); HEMOGLOBIN 12.2 g/dL (12.0-15.5); LYMPHOCYTES % (AUTO) 16.6 % (13-45); MEAN CORPUSCULAR HEMOGLOBIN 22.5 pg (27.0-33.4); MEAN CORPUSCULAR HGB CONC 31.9 g/dL (32.0-36.0); MEAN CORPUSCULAR VOLUME 71 fl (80-97); MONOCYTES % (AUTO) 16.5 % (3-13); PLATELET COUNT 321 10^3/uL (150-450); RED BLOOD COUNT 5.41 10^6/uL (3.72-5.28); RED CELL DISTRIBUTION WIDTH 14.2 % (11.5-14.0); SEGMENTED NEUTROPHILS % (AUTO) 66.4 % (42-78); TOTAL CELLS COUNTED % (AUTO) 100 %; WHITE BLOOD COUNT 12.3 10^3/uL (4.0-10.5)
[2018-05-05 06:29] LABS: ANION GAP 12 (5-19); BLOOD UREA NITROGEN 7 mg/dL (7-20); CALCIUM 9.6 mg/dL (8.4-10.2); CARBON DIOXIDE 26 mmol/L (22-30); CHLORIDE 104 mmol/L (98-107); GLUCOSE 102 mg/dL (75-110); POTASSIUM 4.1 mmol/L (3.6-5.0); SODIUM 142.2 mmol/L (137-145)
--- NOTE | 2018-05-05 06:37 | RADIOLOGY REPORT (SQ) ---
EXAM DESCRIPTION: CT NECK CHEST WITH IV CONTRAST COMPLETED DATE/TME: 05/05/2018 05:19 CLINICAL HISTORY: 23 years, Female, eval for tonsillar cellulitis vs abscess COMPARISON: None. TECHNIQUE: 249 Images stored on PACS. All CT scanners at this facility use dose modulation, iterative reconstruction, and/or weight based dosing when appropriate to reduce radiation dose to as low as reasonably achievable (ALARA). [facility]: Dose Right [facility]: CareDose [facility]: Dose Right [facility]: Teradose 4D [facility]: Motivano LIMITATIONS: None. FINDINGS: Limited evaluation of brain parenchyma is unremarkable. The globes are intact. The paranasal sinuses and mastoid air cells are well aerated. No discrete or defined abscess. There is significant enlargement of the tonsillar pillars bilaterally and of the adenoid tissue of the posterior nasopharynx. This causes significant narrowing of the upper airway with "kissing tonsils". What is likely prominence of the lingual tonsils with a combination of retained food/debris/secretions in the preepiglottic space is also present. The epiglottis and aryepiglottic folds are normal. The prevertebral soft tissues are normal. The subglottic airway is widely patent. Visualized thyroid gland enhances normally. Limited evaluation of the lung apices is unremarkable. The submandibular and parotid glands are unremarkable. Multiple enlarged cervical chain nodes bilaterally, the largest in the left jugulodigastric chain measuring 2.1 x 1.9 cm. IMPRESSION: Significant tonsillar hypertrophy/enlargement, as above with prominent adenoid tissue of the posterior nasopharynx causing significant narrowing of the upper airway. The subglottic airway is widely patent. Increased secretions/debris in the preepiglottic space is suggested. Correlate with physical exam findings. Prominent cervical chain lymph nodes are also present bilaterally. These may be reactive. TECHNICAL DOCUMENTATION: Quality ID # [id number]: Final reports with documentation of one or more dose reduction techniques (e.g., Automated exposure control, adjustment of the mA and/or kV according to patient size, use of iterative reconstruction technique) copyright 2011 [employer]- All Rights Reserved
[2018-05-05] MEDS ORDERED: PENICILLIN G BENZATHINE 1.2 MILLION UNIT/2 ML DISP.SYRIN IM ONE (06:53)
[2018-05-05 08:59] VITALS: BP 136/78
== END 2018-05-05 08:40 | disposition home or self-care (01) ==
LOC: ER 04:35
DX: J03.90 Acute tonsillitis, unspecified (principal); R50.9 Fever, unspecified
CPT/HCPCS: 36415; 87070; 87880; 84703; 85025; 80048; 70491; J2930; J1885; J0561; J0696; J7030

== ENCOUNTER 2018-11-26 20:37 | Emergency (ER) | payer SELFPAY ==
[2018-11-26 22:47] LABS: APPEARANCE,URINE SLIGHTLY-CLOUDY; BILIRUBIN,URINE NEGATIVE (NEGATIVE); COLOR,URINE AMBER; GLUCOSE, URINE NEGATIVE (NEGATIVE); KETONES,URINE NEGATIVE (NEGATIVE); LEUKOCYTE ESTERASE,URINE LARGE (NEGATIVE); NITRITE,URINE NEGATIVE (NEGATIVE); PROTEIN,URINE 30 mg/dL (NEGATIVE); URINE SPECIFIC GRAVITY 1.029
[2018-11-27] MEDS ORDERED: ONDANSETRON HCL INJ/PF 4 MG/2 ML SDV IV ONE (00:11)
[2018-11-27] MEDS ORDERED: NORMAL SALINE 1000 ML 1,000 ML IV ONE (00:11)
--- NOTE | 2018-11-27 00:13 | ER Document Report ---
ED Medical Screen (RME) - General Chief Complaint: Nausea/Vomiting Stated Complaint: SORE THROAT Time Seen by Provider: 11/27/18 00:10 Notes: Patient is a 23-year-old female presents to the emergency department with multiple complaints. States she has generalized sore throat bilateral ear pain. Patient's denying any fevers. Patient states she has generalized "all over abdominal pain." States she is vomited once a day since Saturday. States she feels nauseous at this time. Patient's denying any dysuria or vaginal discharge. Patient's denying any loose stools. GENERAL: Alert, interacts well. No acute distress. ABDOMEN: Soft, generalized pain noted all 4 quadrants non-distended. Bowel sounds present in all 4 quadrants. I have greeted and performed a rapid initial assessment of this patient. A comprehensive ED assessment and evaluation of the patient, analysis of test results and completion of the medical decision making process will be conducted by additional ED providers. I have specifically instructed the patient or family members with the patient to immediately return to any nursing staff should anything change in the patient's condition or with their chief complaint. This medical record was dictated with voice recognizing software. There may be grammatical, syntax errors that are unintended. TRAVEL OUTSIDE OF THE [place] IN LAST 30 DAYS: No - Related Data Allergies/Adverse Reactions: No Known Allergies Allergy (Verified 02/04/18 10:00) Past Medical History - Social History Family history: Reviewed & Not Pertinent Renal/ Medical History: Denies: Hx Peritoneal Dialysis - Immunizations Immunizations up to date: Yes Hx Diphtheria, Pertussis, Tetanus Vaccination: Yes History of Influenza Vaccine for 03/2017 - 08/2017 Season: No Physical Exam - Vital signs Vitals: Temp Pulse Resp BP Pulse Ox 99.6 F 103 H 20 138/72 H 100 11/26/18 21:13 11/26/18 21:13 11/26/18 21:13 11/26/18 21:13 11/26/18 21:13 Course - Vital Signs Vital signs: Temp Pulse Resp BP Pulse Ox 99.6 F 103 H 20 138/72 H 100 11/26/18 21:13 11/26/18 21:13 11/26/18 21:13 11/26/18 21:13 11/26/18 21:13 - Laboratory Laboratory results interpreted by me: 11/26/18 20:48 Urine Protein 30 H Urine Urobilinogen 4.0 H Ur Leukocyte Esterase LARGE H Urine Ascorbic Acid 40 H
[2018-11-27 00:45] LABS: ABSOLUTE BASOPHILS # (AUTO) 0.1 10^3/uL (0.0-0.2); ABSOLUTE EOSINOPHILS # (AUTO) 0.1 10^3/uL (0.0-0.6); ABSOLUTE LYMPHOCYTES (AUTO) 3.4 10^3/uL (0.5-4.7); ABSOLUTE MONOCYTES (AUTO) 1.4 10^3/uL (0.1-1.4); ABSOLUTE NEUT (AUTO) 11.7 10^3/uL (1.7-8.2); BASOPHILS % (AUTO) 0.3 % (0-2); EOSINOPHILS % (AUTO) 0.6 % (0-6); HEMATOCRIT 36.3 % (36.0-47.0); HEMOGLOBIN 11.5 g/dL (12.0-15.5); LYMPHOCYTES % (AUTO) 20.4 % (13-45); MEAN CORPUSCULAR HEMOGLOBIN 22.1 pg (27.0-33.4); MEAN CORPUSCULAR HGB CONC 31.6 g/dL (32.0-36.0); MEAN CORPUSCULAR VOLUME 70 fl (80-97); MONOCYTES % (AUTO) 8.4 % (3-13); PLATELET COUNT 372 10^3/uL (150-450); RED BLOOD COUNT 5.18 10^6/uL (3.72-5.28); RED CELL DISTRIBUTION WIDTH 14.2 % (11.5-14.0); SEGMENTED NEUTROPHILS % (AUTO) 70.3 % (42-78); TOTAL CELLS COUNTED % (AUTO) 100 %; WHITE BLOOD COUNT 16.7 10^3/uL (4.0-10.5)
[2018-11-27 01:03] LABS: ALANINE AMINOTRANSFERASE 27 U/L (9-52); ALKALINE PHOSPHATASE 72 U/L (38-126); ANION GAP 11 (5-19); ASPARTATE AMINO TRANSFERASE 18 U/L (14-36); BILIRUBIN,DIRECT 0.2 mg/dL (0.0-0.4); BILIRUBIN,TOTAL 0.5 mg/dL (0.2-1.3); BLOOD UREA NITROGEN 5 mg/dL (7-20); CALCIUM 9.4 mg/dL (8.4-10.2); CARBON DIOXIDE 25 mmol/L (22-30); CHLORIDE 104 mmol/L (98-107); GLUCOSE 91 mg/dL (75-110); LIPASE 103.7 U/L (23-300); POTASSIUM 3.3 mmol/L (3.6-5.0); SODIUM 140.2 mmol/L (137-145); TOTAL PROTEIN 7.4 g/dL (6.3-8.2)
--- NOTE | 2018-11-27 01:39 | ER Document Report ---
ED General - General Chief Complaint: Nausea/Vomiting Stated Complaint: SORE THROAT Time Seen by Provider: 11/27/18 00:10 Primary Care Provider: AUDREY POZO MD [ACTIVE STAFF] - Follow up in 3-5 days (primary care. ) Notes: Patient is a 23-year-old female that presents to the emergency department for chief complaint of sore throat and nausea and vomiting. Patient states that her symptoms of sore throat started on Saturday, got progressively worse over the weekend, with associated nausea and vomiting some abdominal discomfort. She is had subjective fever at home as well, and some chills. Overall she has had generalized body aches. She denies having any dysuria, hematuria or vaginal bleeding or discharge. She currently rates her pain as a 3 out of 10 describes as a discomfort in the back of her throat, and an ache in her abdomen, does not localize the pain in her abdomen to one side of the other or upper or lower. She has not had any further vomiting since coming to the emergency department. She does not believe she is , she is on the Nexplanon. Past Medical History: Denies chronic medical conditions Past Surgical History: Denies surgical history Social History: Denies tobacco, alcohol or drug use. Family History: Reviewed and noncontributory for presenting illness Allergies: Reviewed, see documented allergy list. REVIEW OF SYSTEMS: Other than noted above, the 12 point review of systems was reviewed with the patient and were negative, all pertinent findings are included in the HPI. PHYSICAL EXAMINATION: Vital signs reviewed, nursing noted reviewed. GENERAL: Well-appearing, well-nourished and in no acute distress. HEAD: Atraumatic, normocephalic. EYES: Eyes appear normal, extraocular movements intact, sclera anicteric, conjunctiva are normal. ENT: nares patent, bilateral tonsil edema, erythema, and exudates noted, moist mucous membranes. NECK: Normal range of motion, supple without lymphadenopathy LUNGS: Breath sounds clear to auscultation bilaterally and equal. No wheezes rales or rhonchi. HEART: Regular rate and rhythm without murmurs ABDOMEN: Soft, mild diffuse abdominal discomfort with palpation, no focal tenderness, normoactive bowel sounds. No rebound, guarding, or rigidity. No masses appreciated. EXTREMITIES: Nontender, good range of motion, no pitting or edema. NEUROLOGICAL: No focal neurological deficits. Moves all extremities spontan eously Motor and sensory grossly intact on exam. PSYCH: Normal mood, normal affect. SKIN: Warm, Dry, normal turgor, no rashes or lesions noted on exposed skin TRAVEL OUTSIDE OF THE [place] IN LAST 30 DAYS: No - Related Data Allergies/Adverse Reactions: No Known Allergies Allergy (Verified 02/04/18 10:00) Past Medical History - Social History Smoking Status: Never Smoker Family History: Reviewed & Not Pertinent, CVA, Hypertension, Other - Dementia. denies: Arthritis, CAD, COPD, DM, Hyperlipidemia, Malignancy, Thyroid Disfunction Renal/ Medical History: Denies: Hx Peritoneal Dialysis - Immunizations Immunizations up to date: Yes Hx Diphtheria, Pertussis, Tetanus Vaccination: Yes Physical Exam - Vital signs Vitals: Temp Pulse Resp BP Pulse Ox 99.6 F 103 H 20 138/72 H 100 11/26/18 21:13 11/26/18 21:13 11/26/18 21:13 11/26/18 21:13 11/26/18 21:13 Course - Re-evaluation Re-evalutation: Patient seen and examined vital signs reviewed. Laboratory data and/or imaging were ordered as appropriate for the patient's presenting symptoms and complaint, with consideration of any critical or life threatening conditions that may be associated with their obtained history and exam as noted above. Patient was treated with IM Decadron, p.o. Zofran and Augmentin Results were reviewed when available and demonstrated positive strep antigen testing, her UA was concerning for possible UTI, therefore that is what she is prescribed and given Augmentin as opposed to amoxicillin for her strep to cover for UTI as well. She did have a leukocytosis, which is consistent with strep infection which will be treated. The patient was re-evaluated and was improved, nausea was improved Evaluation was most consistent with strep pharyngitis, UTI, given prescription for Augmentin for 10 days and advised follow-up with primary care. Results were discussed with the patient at this point, after careful consideration I feel that that patient can be discharged from the emergency department, the patient was educated treatments and reasons to return to the emergency department based on their presumed diagnosis as noted above, they were advised to followup with a primary care physician in 2-3 days. Patient was agreeable to plan of care. *Note is created using voice recognition software and may contain spelling, syntax or grammatical errors. Laboratory 11/26/18 11/27/18 11/27/18 20:48 00:18 00:33 WBC 16.7 H RBC 5.18 Hgb 11.5 L Hct 36.3 MCV 70 L MCH 22.1 L MCHC 31.6 L RDW 14.2 H Plt Count 372 Seg Neutrophils % 70.3 Lymphocytes % 20.4 Monocytes % 8.4 Eosinophils % 0.6 Basophils % 0.3 Absolute Neutrophils 11.7 H Absolute Lymphocytes 3.4 Absolute Monocytes 1.4 Absolute Eosinophils 0.1 Absolute Basophils 0.1 Sodium Potassium Chloride Carbon Dioxide Anion Gap BUN Creatinine Est GFR ( Amer) Est GFR (Non-Af Amer) Glucose Calcium Total Bilirubin Direct Bilirubin Neonat Total Bilirubin Neonat Direct Bilirubin Neonat Indirect Bili AST ALT Alkaline Phosphatase Total Protein Albumin Lipase Urine Color ZEYNEP Urine Appearance SLIGHTLY-CLOUDY Urine pH 6.0 Ur Specific Shepherd 1.029 Urine Protein 30 H Urine Glucose (UA) NEGATIVE Urine Ketones NEGATIVE Urine Blood NEGATIVE Urine Nitrite NEGATIVE Urine Bilirubin NEGATIVE Urine Urobilinogen 4.0 H Ur Leukocyte Esterase LARGE H Urine WBC (Auto) 5 Urine RBC (Auto) 1 Urine Bacteria (Auto) TRACE Squamous Epi Cells Auto 6 Urine Mucus (Auto) MANY Urine Ascorbic Acid 40 H Urine HCG, Qual NEGATIVE Group A Strep Rapid POSITIVE 11/27/18 00:33 WBC RBC Hgb Hct MCV MCH MCHC RDW Plt Count Seg Neutrophils % Lymphocytes % Monocytes % Eosinophils % Basophils % Absolute Neutrophils Absolute Lymphocytes Absolute Monocytes Absolute Eosinophils Absolute Basophils Sodium 140.2 Potassium 3.3 L Chloride 104 Carbon Dioxide 25 Anion Gap 11 BUN 5 L Creatinine 0.77 Est GFR ( Amer) > 60 Est GFR (Non-Af Amer) > 60 Glucose 91 Calcium 9.4 Total Bilirubin 0.5 Direct Bilirubin 0.2 Neonat Total Bilirubin Not Reportable Neonat Direct Bilirubin Not Reportable Neonat Indirect Bili Not Reportable AST 18 ALT 27 Alkaline Phosphatase 72 Total Protein 7.4 Albumin 4.0 Lipase 103.7 Urine Color Urine Appearance Urine pH Ur Specific Shepherd Urine Protein Urine Glucose (UA) Urine Ketones Urine Blood Urine Nitrite Urine Bilirubin Urine Urobilinogen Ur Leukocyte Esterase Urine WBC (Auto) Urine RBC (Auto) Urine Bacteria (Auto) Squamous Epi Cells Auto Urine Mucus (Auto) Urine Ascorbic Acid Urine HCG, Qual Group A Strep Rapid - Vital Signs Vital signs: Temp Pulse Resp BP Pulse Ox 99.6 F 82 20 129/60 H 100 11/26/18 21:13 11/27/18 02:13 11/26/18 21:13 11/27/18 02:13 11/27/18 02:13 - Laboratory Result Diagrams: 11/27/18 00:33 11/27/18 00:33 Laboratory results interpreted by me: 11/26/18 11/27/18 11/27/18 20:48 00:33 00:33 WBC 16.7 H Hgb 11.5 L MCV 70 L MCH 22.1 L MCHC 31.6 L RDW 14.2 H Absolute Neutrophils 11.7 H Potassium 3.3 L BUN 5 L Urine Protein 30 H Urine Urobilinogen 4.0 H Ur Leukocyte Esterase LARGE H Urine Ascorbic Acid 40 H Discharge - Discharge Clinical Impression: Acute streptococcal pharyngitis UTI (urinary tract infection) Qualifiers: Urinary tract infection type: site unspecified Hematuria presence: without hematuria Qualified Code(s): N39.0 - Urinary tract infection, site not specified Condition: Stable Disposition: HOME, SELF-CARE Instructions: Strep Throat ([facility]) Additional Instructions: Please complete the entire course of antibiotics as prescribed, and follow-up with your primary care physician if you do not have one, that one has been listed with your paperwork. If your symptoms worsen, your sore throat is not improving, over the next few days, or if your vomiting is getting worse, do not hesitate to return to the emergency department. Prescriptions: Amox Tr/Potassium Clavulanate [Augmentin 875-125 mg Tablet] 1 tab PO BID #20 tablet Forms: Return to Work Referrals: AUDREY POZO MD [ACTIVE STAFF] - Follow up in 3-5 days (primary care. )
[2018-11-27] MEDS ORDERED: DEXAMETHASONE SOD PHOS INJ 10 MG/1 ML VIAL IM ONE (01:53)
[2018-11-27] MEDS ORDERED: AMOXICILLIN TR/POT CLAVULANATE 500-125 MG TAB PO ONE (01:53)
[2018-11-27] MEDS ORDERED: ONDANSETRON 4 MG TAB.RAPDIS PO ONE (01:53)
[2018-11-27] MEDS ORDERED: ONDANSETRON ODT 4 MG TAB (6 TAB/ER DISP) PO PRN (02:02)
[2018-11-27 02:14] VITALS: BP 129/60
== END 2018-11-27 02:26 | disposition home or self-care (01) ==
LOC: ER 20:37
DX: J02.0 Streptococcal pharyngitis (principal); N39.0 Urinary tract infection, site not specified; R11.2 Nausea with vomiting, unspecified
CPT/HCPCS: 99283; 36415; 87880; 83690; 85025; 81025; 80053; 81001; S0119; J1100